=== PATIENT | female | born 1955 | race African-American/Black ===

== ENCOUNTER → 2016-09-23 | Outpatient (CLI) | payer OTHER ==
[2016-09-23 10:28] LABS: HEMATOCRIT 45.1 % (37.0-47.0); HEMOGLOBIN 14.6 g/dl (12.5-16.0); MEAN CELL VOLUME 87 fl (80.0-100.0); MEAN CORPUSCULAR HEMOGLOBIN 28 pg (27.0-31.0); MEAN CORPUSCULAR HGB CONC 32 g/dl (33.0-37.0); MEAN PLATELET VOLUME 11.5 fl (7.4-10.4); PLATELET COUNT 246 K/mm3 (130-400); RED BLOOD COUNT 5.17 M/mm3 (4.10-5.30); REDCELL DISTRIBUTION WIDTH-CV 13.2 % (11.5-14.5); WHITE BLOOD COUNT 6.3 K/mm3 (4.8-10.8)
[2016-09-23 10:37] LABS: ADJUSTED CALCIUM 9.8 mg/dL (8.4-10.2); ALBUMIN 4.5 gm/dL (3.5-5.0); BILIRUBIN,TOTAL 0.6 mg/dL (0.0-1.0); CALCIUM 10.2 mg/dL (8.4-10.2); CREATININE, serum 0.9 mg/dL (0.52-1.25); TOTAL PROTEIN 8.3 gm/dL (6.4-8.2)
[2016-09-23 11:07] LABS: THYROID STIMULATING HORMONE 1.28 uIU/mL (0.465-4.680)
== END ==
LOC: COL.LAB 09:45
PROVIDERS: Internal Medicine
DX: E11.9 Type 2 diabetes mellitus without complications (principal); I10 Essential (primary) hypertension

== ENCOUNTER → 2016-12-29 | Outpatient (CLI) | payer OTHER | LOC: COL.RAD 10:20 | DX: M17.0 Bilateral primary osteoarthritis of knee (principal) ==

== ENCOUNTER → 2017-06-21 | Outpatient (CLI) | payer SELFPAY ==
[2017-06-21 11:10] LABS: ALBUMIN 3.8 gm/dL (3.5-5.0); BILIRUBIN,TOTAL 0.4 mg/dL (0.0-1.0); CALCIUM 9.7 mg/dL (8.4-10.2); CHOLESTEROL RISK RATIO 4.2; CREATININE, serum 0.84 mg/dL (0.52-1.25); POTASSIUM 4.2 mmol/L (3.4-5.0); TOTAL PROTEIN 7.3 gm/dL (6.4-8.2)
[2017-06-21 11:40] LABS: TSH w REFLEX 1.28 uIU/mL (0.465-4.680)
== END ==
LOC: ZLAB.FHCC 10:38
DX: Z01.89 Encounter for other specified special examinations (principal)

== ENCOUNTER → 2017-08-12 | Outpatient (CLI) | payer SELFPAY | LOC: COL.VAS 08:42 | DX: I08.3 Combined rheumatic disorders of mitral, aortic and tricuspid valves (principal); R06.02 Shortness of breath ==

== ENCOUNTER → 2017-09-19 | Outpatient (CLI) | payer SELFPAY | LOC: COL.RAD 10:05 | DX: I67.82 Cerebral ischemia (principal); Z86.011 Personal history of benign neoplasm of the brain ==

== ENCOUNTER → 2018-04-25 | Outpatient (CLI) | payer SELFPAY ==
[2018-04-25 11:35] LABS: HEMATOCRIT 43.3 % (37.0-47.0); HEMOGLOBIN 14.2 g/dl (12.5-16.0)
[2018-04-25 11:49] LABS: ALBUMIN 3.8 gm/dL (3.5-5.0); BILIRUBIN,TOTAL 0.3 mg/dL (0.0-1.0); CALCIUM 9.8 mg/dL (8.4-10.2); CHOLESTEROL RISK RATIO 5.1; CREATININE, serum 0.83 mg/dL (0.52-1.25); POTASSIUM 4.1 mmol/L (3.4-5.0); TOTAL PROTEIN 6.9 gm/dL (6.4-8.2)
[2018-04-25 12:20] LABS: TSH w REFLEX 1.8 uIU/mL (0.465-4.680)
== END ==
LOC: ZLAB.FHCC 11:13
PROVIDERS: Internal Medicine
DX: E11.9 Type 2 diabetes mellitus without complications (principal); O92.6 Galactorrhea